=== PATIENT | male | born 1955 | race Caucasian/White ===

== ENCOUNTER 2024-01-29 01:18 | Emergency (ER) | payer MEDICARE, MEDICAID ==
[~2024-01-29] VITALS: Ht 165.1 cm; Wt 82.0 kg
[2024-01-29 01:32] VITALS: O2SAT 97
[2024-01-29 03:05] LABS: BASOPHILS % 0.2 % (0.0-2.0); HEMATOCRIT. 46.2 % (42.0-52.0); HEMOGLOBIN. 15.2 g/dL (14.0-18.0); LYMPHOCYTES % 24.9 % (20.0-50.0); MEAN CORPUSCULAR HGB CONC 32.9 g/dL (31.0-37.0); MEAN CORPUSCULAR VOLUME 88.4 fL (80.0-94.0); MEAN PLATELET VOLUME 9.4 fl (7.4-10.4); MONOCYTES % 8.7 % (2.0-8.0); NEUTROPHILS % 63.2 % (40.0-76.0); PLATELET 196 x1000/uL (130-400); RED BLOOD CELL COUNT 5.23 mill/uL (4.7-6.1); RED CELL DISTRIBUTION WIDTH 15.3 % (11.6-14.6)
[2024-01-29 03:20] LABS: INR 0.9; PROTHROMBIN TIME 10.3 sec (9.6-11.0)
[2024-01-29 03:34] LABS: LACTIC ACID 2.8 mmol/L (0.4-2.0)
[2024-01-29 04:17] LABS: CHLORIDE 108 mEq/L (98-107); POTASSIUM 3.8 mEq/L (3.5-5.1); SODIUM 143 mEq/L (136-145)
[2024-01-29 04:20] LABS: CALCIUM 10.2 mg/dL (8.7-10.4); CARBON DIOXIDE 26 mEq/L (21-32)
[2024-01-29 04:24] LABS: TROPONIN I HIGH SENSITIVITY 7 ng/L (3.0-53)
[2024-01-29 04:25] LABS: CREATININE 0.8 mg/dL (0.6-1.3); GLUCOSE 112 mg/dL (70-105); UREA NITROGEN BLOOD 5 mg/dL (9-23)
[2024-01-29 04:27] LABS: ALANINE AMINOTRANSFERASE 25 IU/L (10-49); ALBUMIN 5.1 g/dL (3.2-4.8); ASPARTATE AMINOTRANSFERASE 29 IU/L (<34); BILIRUBIN TOTAL 0.4 mg/dL (0.1-1.0); PROTEIN TOTAL 8.3 g/dL (6.0-8.3)
[2024-01-29 04:35] LABS: ETHANOL BLOOD 329 mg/dL (<10)
[2024-01-29 04:48] LABS: CLARITY URINE CLEAR (CLEAR); COLOR URINE YELLOW (YELLOW); GLUCOSE URINE NEGATIVE (NEGATIVE); KETONES URINE NEGATIVE (NEGATIVE); LEUKOCYTE ESTERASE URINE NEGATIVE (NEGATIVE); NITRITE URINE NEGATIVE (NEGATIVE); OCCULT BLOOD URINE NEGATIVE (NEGATIVE); PH URINE 5.5 (4.5-8.0); PROTEIN URINE NEGATIVE (NEGATIVE); SPECIFIC GRAVITY URINE 1.004 (1.005-1.030); UROBILINOGEN URINE 0.2 E.U./dL (0.2-1.0)
[2024-01-29 05:00] LABS: *AMPHETAMINES SCREEN URINE NEGATIVE (NEGATIVE); *BARBITURATES SCREEN URINE NEGATIVE (NEGATIVE); *BENZODIAZEPINES SCREEN URINE NEGATIVE (NEGATIVE); *COCAINE SCREEN URINE NEGATIVE (NEGATIVE); CANNABINOID URINE SCREEN NEGATIVE (NEGATIVE); ECSTASY MDMA SCREEN URINE NEGATIVE (NEGATIVE); METHADONE URINE SCREEN NEGATIVE (NEGATIVE); OPIATES URINE SCREEN NEGATIVE (NEGATIVE); PHENCYCLIDINE URINE SCREEN NEGATIVE (NEGATIVE)
[2024-01-29] MEDS ORDERED: MAGNESIUM/ALUMINUM HYDROXIDE/SIMETHICONE 30ML UDC PO NR (06:30)
[2024-01-29] MEDS ORDERED: PANTOPRAZOLE SODIUM 40 MG/VIAL IV NR (06:30)
[2024-01-29] MEDS ORDERED: ONDA4TAB50 MT (06:40)
[2024-01-29] MEDS ORDERED: PROT40 MT (06:40)
[2024-01-29] MEDS ORDERED: IOHEXOL-300 100 ML BOTTLE ONE (06:41)
[2024-01-29 07:00] VITALS: BP 106/71; PULSE 74; RESP 15; TEMP 98.3
== END 2024-01-29 07:01 | disposition home or self-care (01) ==
LOC: ER 01:18
DX: K29.61 Other gastritis with bleeding (principal); F10.229 Alcohol dependence with intoxication, unspecified; K80.80 Other cholelithiasis without obstruction; Y90.8 Blood alcohol level of 240 mg/100 ml or more
CPT/HCPCS: 80053; 80305; 81003; 80320; 83605; 83690; 85025; 85610; 84484; 36415; 74177; 99285; Q9967; G0480